=== PATIENT | female | born 1965 ===

== ENCOUNTER 2018-09-13 10:03 | Emergency (ER) | payer BC ==
[~2018-09-13] VITALS: Ht 167.6 cm; Wt 83.7 kg
[2018-09-13] MEDS ORDERED: aspirin 81mg tab.chew PO ONE (11:10)
[2018-09-13 11:29] LABS: BASOPHILS # (AUTO) 0.1 X10'3 (0-0.2); BASOPHILS % (AUTO) 0.7 % (0-1); EOSINOPHILS % (AUTO) 0.4 % (0-6); HEMATOCRIT 45.4 % (35.0-45.0); HEMOGLOBIN 15.3 g/dl (12.0-16.0); LYMPHOCYTES % (AUTO) 20.7 % (21-51); MEAN CORPUSCULAR HEMOGLOBIN 28.5 PG (27.0-31.0); MEAN CORPUSCULAR HGB CONC 33.8 g/dL (33.0-36.5); MEAN CORPUSCULAR VOLUME 84.3 FL (78-98); MEAN PLATELET VOLUME 7.8 FL (7.4-10.4); MONOCYTES # (AUTO) 0.5 X10'3 (0-0.9); MONOCYTES % (AUTO) 4.8 % (2-12); NEUTROPHILS # (AUTO) 7.2 X10'3 (1.8-7.7); NEUTROPHILS % (AUTO) 73.4 % (42-75); PLATELET COUNT 310 X10'3 (140-440); RED BLOOD COUNT 5.38 X10'6 (4.20-5.60); WHITE BLOOD COUNT 9.8 X10'3 (4.5-11.0)
[2018-09-13 11:46] LABS: ALANINE AMINOTRANSFERASE 30 U/L (12-78); ALBUMIN/GLOBULIN RATIO 1.2 (1.1-1.5); ALKALINE PHOSPHATASE 75 IU/L (46-116); ANION GAP 8 (8-16); ASPARTATE AMINO TRANSFERASE 20 U/L (10-37); BILIRUBIN,TOTAL 0.5 MG/DL (0.1-1.0); BLOOD UREA NITROGEN 10 MG/DL (7-18); BUN/CREATININE RATIO 15.9 (6.6-38.0); CALCIUM 8.9 MG/DL (8.5-10.1); CHLORIDE 103 MMOL/L (99-107); CREATININE 0.63 MG/DL (0.40-0.90); GLUCOSE 88 MG/DL (70-104); POTASSIUM 4.1 MMOL/L (3.5-5.1); SODIUM 137 MMOL/L (135-145); TOTAL CARBON DIOXIDE 25.8 MMOL/L (24-32); TOTAL PROTEIN 7.4 G/DL (6.4-8.2); eGFR > 90 ML/MIN
[2018-09-13 11:48] LABS: D-DIMER 0.32 MG/L FEU (0-0.50); PARTIAL THROMBOPLASTIN TIME 31 SECONDS (22-32)
[2018-09-13 12:08] VITALS: BP 110/83
[2018-09-13] MEDS ORDERED: DOXY100C43 PO (12:18)
[2018-09-13] MEDS ORDERED: METH4TAB81 PO (12:18)
== END 2018-09-13 12:31 | disposition home or self-care (01) ==
LOC: ER 10:04
DX: J44.9 Chronic obstructive pulmonary disease, unspecified (principal); R91.8 Other nonspecific abnormal finding of lung field; M54.2 Cervicalgia; Z79.899 Other long term (current) drug therapy
CPT/HCPCS: 36415; 71045; 80053; 84484; 85025; 85379; 85610; 85730; 93005; 99284

== ENCOUNTER 2018-09-16 15:29 | Emergency (ER) | payer BC ==
[~2018-09-16] VITALS: Ht 167.6 cm; Wt 75.0 kg
[~2018-09-16 15:29] MED LIST: DOXY100C43 PO; METH4TAB81 PO
[2018-09-16 15:41] VITALS: BP 119/86
[2018-09-16] MEDS ORDERED: acetaminophen 325mg tablet PO ONE (16:15)
[2018-09-16] MEDS ORDERED: normal saline 1000ml 1,000 ML IV ONE (16:15)
[2018-09-16] MEDS ORDERED: ketorolac trometh. 30mg/ml inj. IV ONE (16:15)
[2018-09-16] MEDS ORDERED: proCHLORperazine 10 MG/2 ml inj IV ONE (16:15)
[2018-09-16] MEDS ORDERED: SUMAtriptan succ. 6 MG/0.5ml vial SQ ONE (16:15)
== END 2018-09-16 17:39 | disposition home or self-care (01) ==
LOC: ER 15:30
DX: G43.909 Migraine, unspecified, not intractable, without status migrainosus (principal); Z79.899 Other long term (current) drug therapy
CPT/HCPCS: 96372; 96374; 96375; 99283; J0780; J1885; J3030